=== PATIENT | female | born 1985 | race Two or more races ===

== ENCOUNTER 2023-05-19 06:35 | Day surgery (SDC) | payer OTHER ==
[~2023-05-19] VITALS: Ht 157.5 cm; Wt 68.9 kg
== END 2023-05-19 15:15 | disposition home or self-care (01) ==
LOC: CIR.AMB 06:35
PROVIDERS: ATTEND Surgery
DX: K80.10 Calculus of gallbladder with chronic cholecystitis without obstruction (principal); Z20.822 Contact with and (suspected) exposure to COVID-19